=== PATIENT | male | born 1990 | race Caucasian/White ===

== ENCOUNTER 2021-05-08 20:01 | Emergency (ER) | payer BC ==
[2021-05-08 20:16] VITALS: TEMP 97.8
[2021-05-08] MEDS ORDERED: MAG HYDROX/AL HYDROX/SIMETH 30 ML UNIT-DOSE CUP PO ONE (21:12)
[2021-05-08] MEDS ORDERED: SUCRALFATE 1 GM TABLET (FP) PO ONE (21:12)
[2021-05-08] MEDS ORDERED: FAMOTIDINE 10 MG TABLET PO ONE (21:12)
[2021-05-08] MEDS ORDERED: SUCRALFATE 1 GM TABLET (FP) ONE (21:44)
[2021-05-08] MEDS ORDERED: FAMOTIDINE 10 MG TABLET ONE (21:44)
[2021-05-08] MEDS ORDERED: MAG HYDROX/AL HYDROX/SIMETH 30 ML UNIT-DOSE CUP ONE (21:45)
[2021-05-08 23:35] VITALS: BP 147/80; PULSE 76
== END 2021-05-08 23:27 | disposition home or self-care (01) ==
LOC: JER 20:01
DX: F45.8 Other somatoform disorders (principal)
CPT/HCPCS: 70490-TC; 99284-25